=== PATIENT | male | born 1990 | race Caucasian/White ===

== ENCOUNTER 2020-11-13 09:16 | Outpatient (REF) | payer OTHER, SELFPAY ==
[2020-11-13 11:36] LABS: Hematocrit 41.5 % (42-52); Hemoglobin 14.2 g/dl (14.0-18.0); Mean Corpuscular HGB Conc 34.2 g/dl (31.0-36.0); Mean Corpuscular Hemoglobin 30.3 pg (27.0-33.0); Mean Corpuscular Volume 88.7 fL (80-98); Mean Platelet Volume 10.4 fL (9.4-12.4); Platelet Count 228 X10*3/uL (160-400); Red Blood Count 4.68 X10*6/uL (4.60-5.80); Red Cell Distribution Width 11.5 % (11.0-16.0); White Blood Count 4.6 X10*3/uL (4.8-10.8)
[2020-11-13 12:07] LABS: Alanine Aminotransferase 18 U/L (0-40); Albumin Level 4.1 g/dL (3.5-5.0); Alkaline Phosphatase 45 U/L (39-117); Anion Gap 11 (12-20); Aspartate Amino Transferase 23 U/L (5-37); Bilirubin Total 1.5 mg/dL (0.0-1.0); Blood Urea Nitrogen 15 mg/dL (9-16); Calcium 9.3 mg/dL (8.4-10.2); Carbon Dioxide 30 mmol/L (22-29); Chloride 105 mmol/L (96-108); Cholesterol 171 mg/dL; Estimated Glomerular Filt Rate > 60; Glucose Fasting 87 mg/dL (60-99); HDL Cholesterol 45 mg/dL; LDL Cholesterol Calculated 119 mg/dl; Potassium 4.1 mmol/L (3.3-5.1); Sodium 142 mmol/L (135-145); Total Protein 6.5 g/dL (6.5-8.0); Triglycerides 39 mg/dL
[2020-11-13 12:27] LABS: TSH reflex Free T4 1.23 uIU/mL (0.32-4.0)
== END 2020-11-13 09:17 | disposition home or self-care (01) ==
LOC: HO.HMGCLDS 09:16
PROVIDERS: PCP Physician Assistant; Visit Provider Physician Assistant
DX: Z13.220 Encounter for screening for lipoid disorders (principal); Z13.29 Encounter for screening for other suspected endocrine disorder; I10 Essential (primary) hypertension
CPT/HCPCS: 36415; 80053; 80061; 84443; 85027

== ENCOUNTER 2021-10-25 11:52 | Emergency (ER) | payer OTHER, SELFPAY ==
--- NOTE | ~2021-10-25 | XR_ITS ---
EXAMINATION: XR third finger, LEFT CLINICAL INFORMATION: Table saw laceration COMPARISON: None TECHNIQUE: Three views of the left third finger. FINDINGS: There is no evidence of acute fracture or dislocation of the left third finger. There is a laceration seen about the distal tip of the distal phalanx. No radiopaque foreign body is appreciated. Joint spaces are maintained. XR/XR finger LT min 2V IMPRESSION: Soft tissue laceration without underlying bony abnormality appreciated.
[2021-10-25 12:04] VITALS: BP 141/104; PULSE 71; RESP 18; TEMP 36.7; O2SAT 98; BMI 22.8
--- NOTE | 2021-10-25 12:28 | ED_ITS ---
HPI - Wound/Laceration General Chief Complaint: Wound/Laceration Stated Complaint: L finger lac/work inj Time Seen by Provider: 10/25/21 12:24 Source: patient and family Mode of arrival: ambulatory Limitations: no limitations History of Present Illness HPI narrative: 31-year-old male presenting to the ED with complaints of a laceration to his left hand middle finger that occurred prior to arrival while using a table saw at home. He reports that he is up-to-date on tetanus. He denies any thoughts of foreign bodies or paresthesias or any other injuries complaints or concerns at this time. 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) Extremity Location: left: hand (middle finger ) Place: home Patient tetanus UTD: Yes Context: accidental Associated symptoms: pain Treatments prior to arrival: bandage Related Data Previous Rx's Medication Instructions Recorded acetaminophen 500 mg tablet 1,000 mg PO QID PRN fever or pain 10/25/21 (Tylenol Extra Strength) #14 tabs cephalexin 500 mg capsule 500 mg PO BID 7 days #14 caps 10/25/21 ibuprofen 800 mg tablet 800 mg PO Q8H PRN pain #14 tabs 10/25/21 oxycodone 5 mg tablet 5 mg PO Q6H PRN pain #7 tabs 10/25/21 Allergies Allergy/AdvReac Type Severity Reaction Status Date / Time No Known Allergies Allergy Verified 06/23/20 18:49 [No Known Allergies*] Review of Systems Review of Systems: Constitutional : No Fever, No Chills, Cardiovascular : No Chest Pain, No SOB Respiratory : No Dyspnea Gastrointestinal : No abdominal pain Musculoskeletal : No Joint Swelling Skin : positive skin laceration, No Foreign bodies, No rash, No surrounding erythema Neuro : No Weakness, No Numbness/tingling Psych : No SI/HI/thoughts of self injury Yes all other systems are reviewed and are negative [facility] Past Medical History Attestation statement: The following information was validated with the patient. Source: old records reviewed, obtained from family and nursing notes reviewed Family History Family History Father No problems noted. Mother No problems noted. Social History Social History Alcohol intake: current Alcohol intake frequency: holidays/special occasions only Patient Tobacco Use Status: Never used Tobacco Use of substances other than those prescribed or required for medical reasons: No Advance Directives: No Advance Directives Information Provided: Yes Current occupational status: employed Current occupation: COSTRUCTION Physical Exam Vital Signs: Vital Signs: Last Vital Signs Temp 98.1 F 10/25/21 12:04 Pulse 71 10/25/21 12:04 Resp 18 10/25/21 12:04 BP 141/104 H 10/25/21 12:04 Pulse Ox 98 10/25/21 12:04 O2 Del Method 10/25/21 12:04 BMI result Body Mass Index 22.8 vital signs have been reviewed as normal and appeared to be correct. Blood pressure 141/104 Heart rate normal. Respiration rate normal. Temperature normal. Oxygen saturation normal. Appearance: Alert. Oriented X3. No acute distress. Head: Normal external exam. Normocephalic. Atraumatic. Eyes: PERRLA. EOMI. Conjunctiva and sclera normal. Eyelids normal. ENT: Pharynx normal. Uvula midline. Moist mucous membranes. Neck: Normal inspection. Neck supple. FROM. CVS: Normal heart rate and rhythm. Respiratory: No respiratory distress. Painless inspiration. Skin: Skin warm and dry. Normal skin color. Normal skin turgor. No rashes/lesions noted. To the left hand middle finger at the distal aspect of the nail half of his nail has been avulsed partial nail bed is still in place. No skin laceration. No bony tenderness. No obvious ligamentous or tendon injury noted. No foreign bodies noted. Extremities:Extremities exhibit normal range of motion. Extremities nontender. Neuro: Oriented X 3. No motor deficit. No sensory deficit. Reflexes normal. Normal steady gait. No focal neuro deficits noted. Vascular: + radial pulses/+ 2 distal pedal pulses/+2 dorsalis pedis b/l. Normal cap refill. No cyanosis noted to upper extremity nails and lower extremity toes nails. Course Course Course Narrative: Patient Has avulsed laceration of the fingernail no foreign bodies or bony tenderness or obvious ligamentous or tendon injury noted. Tetanus is up-to-date. Will obtain x-ray if negative will DC home with antibiotics and symptomatic treatment instructions return if any new or worsening symptoms to follow up with primary care provider. Patient understands agrees with this plan. MDM - Wound/Laceration Medical Records Attestation: I reviewed the patient's medical records. Imaging Data left middle finger x-ray: Attestation: I personally reviewed and interpreted this imaging study as follows: Radiologist's impression: FINDINGS: There is no evidence of acute fracture or dislocation of the left third finger. There is a laceration seen about the distal tip of the distal phalanx. No radiopaque foreign body is appreciated. Joint spaces are maintained.? XR/XR finger LT min 2V IMPRESSION: Soft tissue laceration without underlying bony abnormality appreciated. Discharge Plan Discharge Clinical Impression: Avulsion of nail of left middle finger Patient Disposition: Home, Self-Care Instructions: Nail Avulsion (ED) Prescriptions: New cephalexin 500 mg capsule 500 mg PO BID 7 Days Qty: 14 0RF ibuprofen 800 mg tablet 800 mg PO Q8H PRN (Reason: pain) Qty: 14 0RF acetaminophen [Tylenol Extra Strength] 500 mg tablet 1,000 mg PO QID PRN (Reason: fever or pain) Qty: 14 0RF oxycodone 5 mg tablet 5 mg PO Q6H PRN (Reason: pain) Qty: 7 0RF Rx Instructions: Partial Fill upon patient request. Referrals: Rajeev Melendez PA-C [Primary Care Provider] - 1 week Stand Alone Forms: Work/School Release
[2021-10-25] MEDS: oxyCODONE HCl Immed Release 5 MG TABLET PO (13:18)
== END 2021-10-25 13:53 | disposition home or self-care (01) ==
PROVIDERS: Emergency Provider Emergency Medicine; PCP Physician Assistant
DX: S61.313A Laceration without foreign body of left middle finger with damage to nail, initial encounter (principal); W31.2XXA Contact with powered woodworking and forming machines, initial encounter; Y93.89 Activity, other specified; Y92.019 Unspecified place in single-family (private) house as the place of occurrence of the external cause; Y99.9 Unspecified external cause status
CPT/HCPCS: 73140; 99283; 99284

== ENCOUNTER 2023-11-23 09:46 | Day surgery (SDC) | payer OTHER, SELFPAY ==
[2023-11-21 12:40] VITALS: BMI 23.9
--- NOTE | 2023-11-21 15:20 | HO.ANESPROP2 ---
Documented by User: Farideh Tapia NP 11/21/23 15:21 HPI - Anesthesia Eval Consult details Narrative: 33yo M for Colonoscopy PMFSH Active Problems Active Problems: All Active Problems Annual physical exam (Acute) Screening for hypothyroidism (Acute) Screening for hypercholesterolemia (Acute) Screening for diabetes mellitus (DM) (Acute) Past Medical History Medical History No pertinent past medical history Family History Family History Father No problems noted. Mother No problems noted. Surgical History Surgical History H/O colonoscopy Social History Social History Alcohol intake: current Alcohol intake frequency: holidays/special occasions only Patient Tobacco Use Status: Never used Tobacco Use of substances other than those prescribed or required for medical reasons: Yes Substance Use Frequency: Occasionally Are you DNR?: No Advance Directives: No Advance Directives Information Provided: Yes Current occupational status: employed Current occupation: COSTRUCTION Meds Allergies Allergy/AdvReac Type Severity Reaction Status Date / Time No Known Allergies Allergy Verified 06/23/20 18:49 [No Known Allergies*] Home Medications ?Medication ?Instructions ?Recorded ?Confirmed ?Last Taken ?Type No Known Home Meds 11/21/23 11/21/23 Unknown History Exam Height,Weight and Vital Signs: Height 5 ft 8 in Weight 71.214 kg Assessment and Plan Assessment Anesthesia Assessment: Chart Reviewed Documented by User: April Spain MD 11/23/23 11:10 PMFSH Past Medical History Medical History No pertinent past medical history Family History Family History Father No problems noted. Mother No problems noted. Family history of problems with anesthesia: No Surgical History Surgical History H/O colonoscopy History of Problems with Anesthesia: No Social History Social History Alcohol intake: current Alcohol intake frequency: holidays/special occasions only Patient Tobacco Use Status: Never used Tobacco Use of substances other than those prescribed or required for medical reasons: Yes Substance Use Frequency: Occasionally Are you DNR?: No Advance Directives: No Advance Directives Information Provided: Yes Current occupational status: employed Current occupation: COSTRUCTION Meds Allergies Allergy/AdvReac Type Severity Reaction Status Date / Time No Known Allergies Allergy Verified 06/23/20 18:49 [No Known Allergies*] Home Medications ?Medication ?Instructions ?Recorded ?Confirmed ?Last Taken ?Type No Known Home Meds 11/21/23 11/21/23 Unknown History Exam Height,Weight and Vital Signs: Height 5 ft 8 in Weight 71.214 kg Vital Signs Temp Pulse Resp BP Pulse Ox O2 Del Method 11/23/23 10:06 96.6 F L 54 16 118/76 99 Room Air Airway Mallampati Class: I TM Dist: >3cm Neck ROM: Full Loose/Missing/Broken Teeth: Yes (1 tooth extracted. Denies broken or loose teeth) Heart: RRR Lungs: CTAB Assessment and Plan Assessment Anesthesia Assessment: Anesthesia Plan Discussed and Chart Reviewed Final Anesthetic Review Family History of Problems with Anesthesia: No History of Problems with Anesthesia: No NPO: Yes ASA Class: I Final Preanesthetic Review: No Changes in Pt Med Stat, Meds/Allgs Chart Reviewed, Consent Obtained/Reviewed and Anes Risks/Benef Reviewed Patient Risk: Low Procedure Risk: Low Assessment/Block/Sedation in SS: Assess/Block/Sedation-SS Anesthetic Plan Anesthetic Plan: TIVA Disposition: Standard PACU
[2023-11-23 09:54] VITALS: BMI 23.7
[2023-11-23 10:06] VITALS: BP 118/76; PULSE 54; RESP 16; TEMP 35.9; O2SAT 99
[2023-11-23] MEDS: Lactated Ringers 1,000 ML 100 ML IVCONT (10:19)
[2023-11-23 11:59] VITALS: BP 91/59; PULSE 76; RESP 16; TEMP 36.1; O2SAT 95
--- NOTE | 2023-11-23 12:00 | PM.OP ---
Brief Operative Note Date of Service: 11/23/23 Pre-op diagnosis: Screening Post-op diagnosis: other (Internal hemorrhoids) Procedure: Colonoscopy to the cecum and TI Surgeon: Meng Bill MD Anesthesia: MAC Was an Sports Development Officer used for this Procedure?: No Estimated blood loss (mL): 0 Pathology: none sent Condition: stable Disposition: PACU
[2023-11-23 12:14] VITALS: BP 101/69; PULSE 50; RESP 16; O2SAT 95
--- NOTE | 2023-11-23 12:26 | OP_ITS ---
DATE OF SERVICE: 11/23/2023 SURGEON: Meng Bill MD INDICATIONS: The patient presents for evaluation of family history of colon polyps and colorectal cancer screening. Full consent has been obtained from him for this, including risks of bleeding and perforation. PREOPERATIVE DIAGNOSIS: POSTOPERATIVE DIAGNOSIS: PROCEDURE PERFORMED: Colonoscopy to cecum and terminal ileum. ESTIMATED BLOOD LOSS: COMPLICATIONS: ANESTHESIA: Monitored anesthesia care. ASSISTANTS: SPECIMENS: PREOPERATIVE DIAGNOSES: Family history of colon polyps and colorectal cancer screening. POSTOPERATIVE DIAGNOSES: Family history of colon polyps, colorectal cancer screening, and internal hemorrhoids. DESCRIPTION OF PROCEDURE: The patient was placed in the left lateral decubitus position. The digital rectal exam revealed no abnormalities. The Olympus video pediatric colonoscope was then entered into the rectum and advanced easily to the cecum. Once in the cecum, I did identify normal-appearing cecal pouch with appendiceal orifice and a normal-appearing ileocecal valve. There was transillumination of light deep in the right lower quadrant. The terminal ileum was cannulated and appeared normal. The scope was withdrawn back in the colon. The entire cecum and ileocecal valve appeared normal. The scope was slowly withdrawn assessing all mucosal surfaces carefully. Preparation was excellent. I did not visualize any sign of polyps, colitis, nor angiodysplasias. In the rectum, scope was retroflexed, visualizing some small internal hemorrhoids, but no other pathology. The rectal mucosa appeared normal. Scope was straightened and withdrawn from the patient. He tolerated the procedure well and was returned to the recovery area in stable condition. IMPRESSION: Internal hemorrhoids. PLAN: I would recommend a repeat colonoscopy at age 41 given his negative colonoscopy 5 years ago, today's negative exam, and his only family history being that of his sister having had 2 or 3 small tubular adenomas removed. He will see me on a p.r.n. basis. This has been discussed with his . Meng Bill MD RMW/JORDENL / [id number]
[2023-11-23 12:29] VITALS: BP 104/74; PULSE 6; RESP 16; TEMP 36.2; O2SAT 97
--- OUTSIDE RECORDS SUMMARY | 2023-11-28 06:29 | XMS_ITS ---
Author Organization [facility] Address [address] [place] [id number] Care Team Providers Care Senior Property Accountant Name Role Phone Rajeev Melendez Primary Care Provider Unavailab Meng Brush Unavailable [phone] REASON FOR VISIT colon screening Encounters Encounter Location Date Provider Diagnosis [facility] [place] Outpatient [address], [place] [id number] 11/23/2023 Meng Bill PLAN OF TREATMENT No Information
--- OUTSIDE RECORDS SUMMARY | 2023-11-28 06:30 | XMS_ITS ---
Author Organization [facility] Address [address] [place] [address] Care Team Providers Care Esol Instructor Name Role Phone Rajeev Melendez Primary Care Provider Unavailab Meng Brush Unavailable [phone] REASON FOR VISIT Accept insurance only Encounters Encounter Location Date Provider Diagnosis [facility] [address] [place] [phone] 10/07/2023 Meng Bill PLAN OF TREATMENT No Information
--- OUTSIDE RECORDS SUMMARY | 2023-11-28 06:30 | XMS_ITS | Patient Health Record ---
Author Organization [facility] Address [address] [place] [phone] Care Team Providers Care Email Deployment Specialist Name Role Phone Rajeev Melendez Primary Care Provider Meng Calderón Unavailable [phone] ALLERGIES No Known Allergies REASON FOR REFERRAL No Information SOCIAL HISTORY Tobacco Use: Social History Observation Description Date Details (start date - stop date) Never Smoker NA - NA Sex Assigned At : Social History Observation Description Sex Assigned At Unknown Tobacco Use/Smoking Question Answer Notes Patient is a nonsmoker Alcohol Screen Question Answer Notes Did you have a drink contain ing alcohol in the past year? Yes How often did you have a dri nk containing alcohol in the past year? Never (0 point) How many drinks did you have on a typical day when you were drinking in the past year? 1 or 2 drinks (0 point) How often did you have 6 or more drinks on one occasion in the past year? Never (0 point) Points 0 Interpretation Negative PROBLEMS Problem Type ICD Code Onset Dates Problem Status W/U Status Risk SNOMED Code Notes Problem Colon cancer screening (Z12.11) Active confirmed Colon cancer screening (820422048) Problem Other family history of colon polyps (Z83.718) Active confirmed Problem Family history of colon polyps, unspecified (Z83.719) Active confirmed Problem Encounter for other preprocedural examination (Z01.818) Active confirmed Pre-procedure evaluation check (121709704) VITAL SIGNS Blood pressure diastolic 00 mm Hg 09/18/2023 Height 5 ft 8 in in 09/18/2023 Blood pressure systolic 00 mm Hg 09/18/2023 Weight 157 lbs 09/18/2023 BMI 23.87 kg/m2 09/18/2023 Encounters Encounter Location Date Provider Diagnosis [facility] [place] [address], [place] [phone] 11/23/2023 Meng Bill [facility] [address] [place] [phone] 09/18/2023 Meng Bill Colon cancer screeni ng Z12.11 ; Encounter for other preprocedural examination Z01.818 and Family history of colon polyps, unspecified Z83.719 [facility] [address] [place] [phone] 08/09/2023 Meng Bill Colon cancer screeni ng Z12.11 and Other family history of colon polyps Z83.718 [facility] [address] [address] 10/07/2023 Meng Bill ASSESSMENTS Encounter Date Diagnosis Assessment Notes Treatment Notes Treatment Clinical Notes 09/18/2023 Colon cancer screening (ICD-10 - Z12.11) 09/18/2023 Encounter for other preprocedural examination (ICD-10 - Z01.818) 08/09/2023 Colon cancer screening (ICD-10 - Z12.11) 08/09/2023 Other family history of colon polyps (ICD-10 - Z83.718) 09/18/2023 Family history of colon polyps, unspecified (ICD-10 - Z83.719) PLAN OF TREATMENT Future Test Test Name Order Date COLONOSCOPY 08/10/2023 COLONOSCOPY 09/18/2023 Insurance Providers Payer Name Payer Address Payer Phone Subscriber Number Group Number Insured Name Patient Relationship to Insured Coverage Start Date Coverage End Date [employer] [place] [address] [address] [place] [address] [id number] DAVE MUJICA Self - patient is the insured MEDICAL (GENERAL) HISTORY Medical History History ICD Code Denies LA,DM,CVA,Lung disease,renal dise ase He reports a negative colonoscopy in 201 9 Surgical History Surgery Date(Month/Year)
--- OUTSIDE RECORDS SUMMARY | 2023-11-28 06:30 | XMS_ITS ---
Author Organization [facility] Address [address] [place] [phone] Care Team Providers Care Spd Manager Name Role Phone Rajeev Melendez Primary Care Provider Meng Calderón Unavailable [phone] ALLERGIES No Known Allergies REASON FOR VISIT patient presents today for colon screening/ per dr. wu SOCIAL HISTORY Tobacco Use: Social History Observation [...] W/U Status Risk SNOMED Code Notes Problem Family history of colon polyps, unspecified (Z83.719) Active confirmed Problem Encounter for other preprocedural examination (Z01.818) Active confirmed Pre-procedure evaluation check (426453730) VITAL SIGNS BMI 23.87 kg/m2 09/18/2023 Blood pressure systolic 00 mm Hg 09/18/19 24 Blood pressure diastolic 00 mm Hg 024 Height 5 ft 8 in in 09/18/2023 Weight 157 lbs 09/18/2023 Encounters Encounter Location Date Provider Diagnosis [facility] [address] [place] [address] 09/18/2023 Meng Wu Colon cancer screeni ng Z12.11 ; Encounter for other preprocedural examination Z01.818 and Family history of colon polyps, unspecified Z83.719 ASSESSMENTS Encounter Date Diagnosis Assessment Notes Treatment Notes Treatment Clinical Notes 09/18/2023 Colon cancer screening (ICD-10 - Z12.11) 09/18/2023 Encounter for other preprocedural examination (ICD-10 - Z01.818) 09/18/2023 Family history of colon polyps, unspecified (ICD-10 - Z83.719) PLAN OF TREATMENT Future Test Test Name Order Date COLONOSCOPY 09/18/2023 Next Appt Details Follow Up: prn, Reason: Progress Notes * Examination Category Sub-Category Detail Notes General Examination GENERAL APPEARANCE: pleasant , well nourished, well developed, in no acute distress , pleasant, well nourished, well developed, in no acute distress HEAD: EYES: sclera non-icteric , sclera non-icteric EARS: NOSE: THROAT: NECK/THYROID: no cervical lymphade nopathy, neck supple , no cervical lymphadenopathy, neck supple HEART: S1, S2 normal , S1, S2 normal CHEST: LUNGS: clear to auscultatio n bilaterally , clear to auscultation bilaterally ABDOMEN: normal bowel sounds, no guarding or rigidity, no guarding or rigidity, no masses palpable, soft, nontender, nondistended , normal bowel sounds, no guarding or rigidity, no guarding or rigidity, no masses palpable, soft, nontender, nondistended NEUROLOGIC: alert and oriented , alert and oriented SKIN: nonjaundiced, no spi brad angiomata , nonjaundiced, no spider angiomata EXTREMITIES: no edema , no edema PERIPHERAL PULSES: BACK: BREASTS: MUSCULOSKELETAL: MALE GENITOURINARY: LYMPH NODES: RECTAL EXAM: FEMALE GENITOURINARY: ORAL CAVITY: mucosa moist , mucos a moist
== END 2023-11-23 13:00 | disposition home or self-care (01) ==
PROVIDERS: PCP Physician Assistant; Visit Provider Internal Medicine
PROC: 0DJD8ZZ Inspection of Lower Intestinal Tract, Via Natural or Artificial Opening Endoscopic (ICD-10-PCS; CPT 45378; principal; 2023-11-23 11:00)
DX: Z12.11 Encounter for screening for malignant neoplasm of colon (principal); K64.8 Other hemorrhoids; Z83.719 Family history of colon polyps, unspecified
CPT/HCPCS: 45378; J2250; J2704